=== PATIENT | male | born 1985 | race Caucasian/White ===

== ENCOUNTER → 2017-11-27 11:54 | Outpatient (CLI) | payer BC, SELFPAY ==
--- NOTE | 2017-11-27 12:02 | XR_ITS ---
XR ankle RT min 3V HISTORY: Pain following injury ITS.REASON: RT ANKLE INJURY ORDERING PHYSICIAN: Tyshanw Escobedo MD PATIENT AGE: 32 years COMPARISON: None FINDINGS: No fracture or dislocation. No lytic or blastic change. There is normal mineralization.. The joint spaces are well-preserved. No significant degenerative/arthritic changes. No erosive changes evident. IMPRESSION: Negative ankle, no acute finding
--- NOTE | 2017-11-27 12:02 | XR_ITS ---
XR foot RT min 3V HISTORY: Pain following injury ITS.REASON: RT ANKLE INJURY ORDERING PHYSICIAN: Tyshawn Escobedo MD PATIENT AGE: 32 years COMPARISON: None FINDINGS: No fracture or dislocation. No lytic or blastic change. There is normal mineralization.. The joint spaces are well-preserved. No significant degenerative/arthritic changes. No erosive changes evident. IMPRESSION: Negative, no acute finding
== END ==
PROVIDERS: PCP Family Medicine; Visit Provider Family Medicine
DX: S99.911A Unspecified injury of right ankle, initial encounter (principal)
CPT/HCPCS: 73610; 73630

== ENCOUNTER → 2018-04-16 16:18 | Outpatient (CLI) | payer BC, SELFPAY ==
--- NOTE | 2018-04-16 16:29 | XR_ITS ---
XR elbow RT min 3V HISTORY: ITS.REASON: RT ELBOW PAIN ORDERING PHYSICIAN: Tyshawn Escobedo MD PATIENT AGE: 32 years COMPARISON: None FINDINGS: BONY STRUCTURES: No fracture or dislocation. No lytic or blastic change. Normal mineralization. SOFT TISSUES: Unremarkable. No radio opaque foreign bodies. No displaced fat pad. JOINT SPACE: Well-preserved. No significant arthritic changes evident. IMPRESSION: Negative elbow.
== END ==
PROVIDERS: PCP Family Medicine; Visit Provider Family Medicine
DX: M25.521 Pain in right elbow (principal)
CPT/HCPCS: 73080

== ENCOUNTER 2020-06-14 14:21 | Emergency (ER) | payer BC, SELFPAY ==
[2020-06-14 16:20] VITALS: BP 146/98; PULSE 86; RESP 19; TEMP 36.7; O2SAT 98; BMI 31.4
--- NOTE | 2020-06-14 16:46 | HMH.EDUTC ---
[facility] [place] Impression: Laceration Disposition: Home, Self-Care Condition on Discharge: Good Instructions: How to Care for a Laceration After Repair, Laceration Repair, DI for Laceration Repair -- Simple Additional Instructions: You have required stitches today. Please read the following instructions so you know how to care for them: 1. Keep wound area dry for the first 24 hours. 2 May clean gently with mild soap and water, after 48 hours to prevent crusting over suture knots. 3. You may shower if your provider gives permission but do not take a bath until the skin is healed.. 4. Never leave a wet dressing or Band-Aid on your stitches as this allows bacteria to reach the area and may cause infection. Band-aids can cause the wound to sweat and not recommended to wear for long periods of time Watch for signs of infection: Increasing redness, tenderness or warmth around the suture site Unusual swelling around the site Appearance of pus around each suture or any red streaks Fever If you develop any of the above signs or symptoms of infection, Follow up with Family Physician immediately 5. Suture removal in _12-14___days 6. Return to [facility] or follow up with family doctor for removal. This can be done by any medical provider during regular hours on Thursday through Thursday, by appointment. Straight to ER if any life threatening symptoms Prescriptions: Amoxicillin/Potassium Clav [Augmentin 875-125 Tablet] 1 tab PO Q12H 7 Days #14 tab Transmission Status: Received by [id number] Referrals: Jovany Russell MD [Primary Care Provider] - As needed Time of Disposition: 16:50 Medical Decision Making - Evangelist Inquiry Pt receiving controlled substance: No Evangelist was queried for this patient: No Vital Signs: 06/14/20 16:20 06/14/20 17:15 Temperature 98.1 F 98.1 F Temperature Source Oral Pulse Rate 86 Pulse Rate [Right Brachial] 86 Respiratory Rate 19 19 Blood Pressure 146/98 H Blood Pressure [Right Arm] 146/98 H Blood Pressure Mean [Right Arm] 114 Blood Pressure Source [Right Arm] Automatic Cuff Blood Pressure Position [Right Arm] Sitting 02 Sat by Pulse Oximetry 98 Oxygen Delivery Method Room Air Orders (Tests/Meds): ED MEDICATIONS Discontinued Medications Generic Name Dose Route Start Last Admin Trade Name Freq PRN Reason Stop Dose Admin Tetanus/Reduced Diphtheria/Acell Pertussis 0.5 ml 06/14/20 16:53 06/14/20 17:05 Adacel Tdap 0.5ml Syringe IM 06/14/20 16:54 0.5 ml .ONCE ONE Administration Medical Decision Narrative: Last tetanus unknown, Laceration on left lower back area advised that he raised up and caught corner of electric panel door Recommended transfer to the ED for closure and patient declined States that he didnt want transfer to ED that he wanted to have wound closed in UTC no active bleeding with bruising noted around area [facility] [place] - General Stated complaint: cut on back Time Seen by Provider: 06/14/20 16:25 Mode of Arrival: Ambulatory Source of Information: Patient Limitations: No Limitations Description of Symptoms (Recalled from Triage Doc. by RN): PATIENT C/O LACERATION TO BACK AFTER HITTING IT ON AN ELECTRICAL BOX HEENT Symptoms (Recalled from RN notes): No Resp Symptoms (Recalled from RN notes): No Skin Symptoms (Recalled from RN notes): No MS Symptoms (Recalled from RN notes): Yes Functional Status (Recalled from RN notes): WNL - History of Present Illness Provider Complaint: Patient states that he was bent over working on something when he raised up and struck the left lower area of his back on sharp corner of metal electrical box door causing laceration to the left lower back area States that he reached back and noticed blood so he applied pressure and states that bleeding stopped but he could feel a cut back there and knew he needed stiches so he came on in - Related Data Previous Rx's Medication Instructions Recorded Amoxici
[2020-06-14 17:15] VITALS: BP 146/98; PULSE 86; RESP 19; TEMP 36.7; O2SAT 98
== END 2020-06-14 17:18 | disposition home or self-care (01) ==
PROVIDERS: Emergency Provider Nurse Practitioner; PCP Family Medicine
DX: S31.010A Laceration without foreign body of lower back and pelvis without penetration into retroperitoneum, initial encounter (principal); W22.09XA Striking against other stationary object, initial encounter; Y92.89 Other specified places as the place of occurrence of the external cause; Z23 Encounter for immunization
CPT/HCPCS: 12001; 90471; 90715; 99201

== ENCOUNTER 2021-09-15 11:02 | Emergency (ER) | payer BC, SELFPAY ==
[2021-09-15 11:40] VITALS: BP 142/82; PULSE 68; RESP 19; TEMP 36.9; O2SAT 98; BMI 32.5
--- NOTE | 2021-09-15 12:03 | HMH.EDUTC ---
[facility] [place] Clinical Impression: Bronchitis Sinusitis Qualifiers: Sinusitis location: unspecified location Chronicity: unspecified Qualified Code(s): J32.9 - Chronic sinusitis, unspecified Disposition: Home, Self-Care Condition on Discharge: Good Instructions: Sinusitis, Acute Bronchitis, DI for Sinusitis Additional Instructions: ? Start antibiotic today. Be sure to complete entire prescription even if feeling better ? Monitor temp. Tylenol every 4 hours as needed and / or ibuprofen every 6 hours as needed ( As long as your primary care physician has told you that it ok to take both. For fever/aches/pains ER if no less than 101 despite Tylenol or Motrin ? Humidifier/vaporizer or hot steamy shower ? Inhaler every 4-6 hours as needed like we discussed. If unsure how to use it, ask pharmacist to demonstrate how. Should help open airways and improve cough, wheezing, and shortness of breath ? Mucinex during the day for your cough and cough suppressant only at night. Be sure to drink lots of water. Insurance may not cover a prescriptions for mucinex. Might be cheaper to get 400mg tablets and take 2 tablet in the morning, mid-day and evening with lots of water. *Start steroid tomorrow. Helps with inflammation therefore, cough and wheezing. Follow directions on the package. Reviewed side effects. Patient reports taking them before. Follow up IMMEDIATELY for new or worsening of symptoms OR no noticeable improvement over the next 48-72 hours. 911 immediately for any life threatening symptoms such as chest pain or difficulty breathing Prescriptions: guaiFENesin [Mucinex 600mg tablet] 1 - 2 tab PO Q12HP PRN #20 tab PRN Reason: Congestion Transmission Status: Received by [id number] predniSONE [Prednisone 20mg Tab] 20 mg PO BID 5 Days #10 tab Transmission Status: Received by [id number] Azithromycin [Z-Claudio 250mg Tab] 250 mg PO DIRECTED #6 tab Transmission Status: Received by [id number] Referrals: Jovany Russell MD [Primary Care Provider] - As needed Forms: Work/School Release Time of Disposition: 12:16 Medical Decision Making - Evangelist Inquiry Pt receiving controlled substance: No Evangelist was queried for this patient: No Vital Signs: 09/15/21 11:40 09/15/21 12:34 Temperature 98.4 F 98.4 F Temperature Source Oral Pulse Rate 68 Pulse Rate [Right Brachial] 68 Respiratory Rate 19 19 Blood Pressure 142/82 H Blood Pressure [Right Arm] 142/82 H Blood Pressure Mean [Right Arm] 102 Blood Pressure Source [Right Arm] Automatic Cuff Blood Pressure Position [Right Arm] Sitting 02 Sat by Pulse Oximetry 98 Oxygen Delivery Method Room Air - Lab Data Lab results reviewed: Yes: I reviewed the patient's lab results. Lab Results 09/15/21 12:10: Strep Scn Rapid Clinic Negative Orders (Tests/Meds): ED MEDICATIONS Discontinued Medications Generic Name Dose Route Start Last Admin Trade Name Bjq PRN Reason Stop Dose Admin Ceftriaxone Sodium 1 gm 09/15/21 12:11 09/15/21 12:30 Ceftriaxone 1gm Vial IM 09/15/21 12:12 1 gm ONCE ONE Administration Lidocaine HCl 0 ml 09/15/21 12:11 09/15/21 12:30 Lidocaine 1% 5ml Pf Vial IM 09/15/21 12:12 2.1 ml ONCE ONE Administration Methylprednisolone Sodium Succinate 125 mg 09/15/21 12:11 09/15/21 12:30 Methylprednisolone Sod Succ 125mg Vial IM 09/15/21 12:12 125 mg ONCE ONE Administration ORDERS Category Date Time Status Strep Screen Confirmation Stat Micro 09/15/21 12:10 Received Medical Decision Narrative: Discussed chest xray and patient declined [facility] [place] - General Stated complaint: sore throat, congesiton, cough Time Seen by Provider: 09/15/21 12:03 Mode of Arrival: Ambulatory Source of Information: Patient Limitations: No Limitations Description of Symptoms (Recalled from Triage Doc. by RN): PATIENT C/O CONGESTION, COUGHING, AND LUNG PAIN X 1 WEEK HEENT Symptoms (Recalled
[2021-09-15 12:21] LABS: UTC Strep Screen (Rapid) Negative (Negative)
[2021-09-15 12:34] VITALS: BP 142/82; PULSE 68; RESP 19; TEMP 36.9; O2SAT 98
== END 2021-09-15 12:46 | disposition home or self-care (01) ==
PROVIDERS: Emergency Provider Nurse Practitioner; PCP Family Medicine
DX: J20.9 Acute bronchitis, unspecified (principal); J32.9 Chronic sinusitis, unspecified
CPT/HCPCS: 87880; 96372; 99202; G0463

== ENCOUNTER 2022-11-10 16:49 | Emergency (ER) | payer BC, SELFPAY ==
[2022-11-10 17:20] VITALS: BP 160/89; PULSE 100; RESP 19; TEMP 36.6; O2SAT 97; BMI 34.9
--- NOTE | 2022-11-10 17:26 | EXP.UTC ---
Discharge Plan Disposition Patient Disposition: Home, Self-Care Condition: Good Prescriptions Prescriptions: New azithromycin [Zithromax] 250 mg tablet 250 mg PO UD DOSE PK Qty: 6 0RF Rx Instructions: Take two (2) tablets today, then one (1) tablet days #2 thru #5 benzonatate [benzonatate] 100 mg capsule 100 mg PO TIDP PRN (Reason: Cough) Qty: 30 0RF methylprednisolone 4 mg Tablets,Dose Pack 4 mg PO DIRECTED Qty: 21 0RF albuterol sulfate [Ventolin HFA] 90 mcg/actuation HFA aerosol inhaler 2 puff inhalation Q6H PRN (Reason: shortness of breath or wheezing) Qty: 6.7 0RF Referrals Follow up/Referrals: Jovany Russell MD [Primary Care Provider] - See instructions Activity Restrictions/Add. Instructions Additional Instructions/Restrictions: Drink plenty of fluids. Take tylenol or ibuprofen for pain or fever. Take the medications as directed. Follow up with your regular doctor. GO TO THE ER FOR ANY WORSENING SYMPTOMS Clinical Impressions Clinical Impression: Acute bronchitis Stand Alone Forms Stand Alone Forms: Work/School Release Instructions Patient Instructions: DI for Acute Bronchitis Discharge ED Provider: Brice Martin [facility] General Stated complaint: congestion Time Seen by Provider: 11/10/22 17:26 History of Present Illness Provider Complaint: He states that for the past 5 days he has had chest congestion, cough with yellow sputum, sore throat and malaise. Related Data Previous Rx's Medication Instructions Recorded albuterol sulfate 90 mcg/actuation 2 puff inhalation Q6H PRN 11/10/22 aerosol inhaler (Ventolin HFA) shortness of breath or wheezing #6.7 grams azithromycin 250 mg tablet 250 mg PO UD DOSE PK #6 tabs 11/10/22 (Zithromax) benzonatate 100 mg capsule 100 mg PO TIDP PRN Cough #30 caps 11/10/22 methylprednisolone 4 mg tablets in 4 mg PO DIRECTED #21 tabs 11/10/22 a dose pack Allergies Allergy/AdvReac Type Severity Reaction Status Date / Time No Known Allergies Allergy Verified 11/10/22 17:32 [facility] Disclaimer: The information contained in this section may have been updated after the patient was seen, as this information can be updated by other users. Social History Smoking Status: Current every day smoker tobacco type: cigarettes packs per day: 1 alcohol intake: never current occupational status: other Travel in the last 8 weeks: None ROS Obtained: Yes All systems reviewed & no additional complaints except as documented Constitutional Constitutional: Reports poor appetite Eyes Eyes: Reports system reviewed and no additional complaints, except as documented ENT Ears, Nose, Mouth, and Throat: Reports as per HPI Cardiovascular Cardiovascular: Reports system reviewed and no additional complaints, except as documented and Denies chest pain Respiratory Respiratory: Denies shortness of breath, Reports chest congestion, Reports cough, Denies stridor and Denies wheezing Gastrointestinal Gastrointestingal: Reports system reviewed and no additional complaints, except as documented; Denies abdominal pain, diarrhea or vomiting Musculoskeletal Musculoskeletal: Reports system reviewed and no additional complaints, except as documented and Denies arthralgias Integumentary/Breasts Skin/Breast: Reports system reviewed and no additional complaints, except as documented and Denies rash Neurologic Neurologic: Denies paresthesias Allergic/Immunologic Allergic/Immunologic: Denies wheezing Physical Exam General General appearance: alert and in no apparent distress Head Head exam: atraumatic, normocephalic and normal inspection Eye Eye exam: Present normal appearance, PERRL and EOMI ENT ENT exam: Present normal exam, normal oropharynx, mucous membranes moist, TM's normal bilaterally and normal external ear exam Neck Neck exam: Present normal inspection, full ROM and trachea
[2022-11-10 18:30] VITALS: BP 160/89; PULSE 100; RESP 19; TEMP 36.1; O2SAT 97
== END 2022-11-10 18:30 | disposition home or self-care (01) ==
PROVIDERS: Emergency Provider Nurse Practitioner Family; PCP Family Medicine
DX: J20.9 Acute bronchitis, unspecified (principal)
CPT/HCPCS: 96372; 99212; 99213; G0463; J0696

== ENCOUNTER 2025-05-17 10:00 | Outpatient (CLI) | payer BC, SELFPAY ==
[2025-05-17 10:08] VITALS: BMI 31.2
--- OUTSIDE RECORDS SUMMARY | 2025-05-17 10:08 | XMS_ITS | Clinical Summary ---
Author Organization [facility] Address [address] [place] [address] Phone Care Team Providers Care Victims Advocate Clerk/Specialist Name Role Phone Unavailable Primary Care Provider Unavailabl e Allergies No known active allergies Medications albuterol (PROVENTIL HFA;VENTOLIN HFA) 90 mcg/actuation inhaler Inhale 2 Puffs into the lungs every 6 hours as needed. Active Surgical History Surgery Date Site/Laterality Comments HAND SURGERY left wrist fx/hdw CHEST TUBE INSERTION age 13, pneumonia KNEE ARTHROSCOPY 10/21/2012 Left left knee arthroscopy partial lateral meniscectomy chondroplasty; Surgeon: Rehan Mar MD; Location: [facility]; Service: Orthopedics Medical History Medical History Date Comments Asthma Pneumonia age 13 Family History Medical History Relation Name Comments Anesth Problems Neg Hx Social History Tobacco Use Types Packs/Day Years Used Date Smoking Tobacco: Every Day Cigarettes 1 5 Tobacco Cessation:Ready to Q uit: Yes; Counseling Given: Yes Comments:recommended st e smoking cessation program Alcohol Use Standard Drinks/Week Comments Yes 0 (1 standard drink = 0.6 oz pur e alcohol) social Sex and Gender Information Value Date Recorded Sex Assigned at Not on file Legal Sex Male 5:00 AM EDT Gender Identity Not on file Sexual Orientation Not on file Obstetrics History Last Filed Vital Signs Vital Sign Reading Time Taken Comments Blood Pressure 140/82 10/21/2012 4:10 PM EST Pulse 68 10/21/2012 4:10 PM EST Temperature 36.7 C (98 F) 10/21/2012 3:56 PM EST Respiratory Rate 16 10/21/2012 3:00 PM EST Oxygen Saturation 98% 10/21/2012 4:10 PM EST Inhaled Oxygen Concentration - - Weight 129 kg (284 lb 7 oz) 10/21/2012 1:[address] Height 190.5 cm (6' 3 ) 10/21/2012 1:31 PM EST Body Mass Index 35.55 10/21/2012 1:31 PM EST Plan of Treatment Health Maintenance Due Date Last Done Comments Annual Wellness Exam 1988 DTaP/TDaP/Td (1 - Tdap) 2004 Hepatitis B Vaccine (1 of 3 - 19+ 3-dose series) 2004 COVID-19 Vaccine ( - 2023-2 5 season) 2024 Influenza Vaccine (#1) 2025 Meningococcal B Vaccine Aged Out No l onger eligible based on patient's age to complete this topic Pneumococcal Vaccine 0-49 Aged Out No longer eligible based on patient's age to complete this topic Insurance URI PPO Advance Directives For more information, please contact: [phone] * Full Code (Latest Code Status on File) Date Activated Date Inactivated Comments 10/21/2012 3:10 PM 10/21/2012 8:27 PM
--- OUTSIDE RECORDS SUMMARY | 2025-05-17 10:08 | XMS_ITS | Clinical Summary ---
Author Organization [facility] Address [address] [place] [phone] Phone Care Team Providers Care Pediatric Urologist Name Role Phone Drew EDMONDSON MD, Wil Saha Primary Care Provider + Allergies No known active allergies Medications azithromycin (Z-PACK) 250 MG TABS packetIndicatio ns:Sebaceous cyst Take 2 tablets (500 mg) today, then 1 tablet (250 mg) by mouth for 4 days starting tomorrow. 6 tablet 1 07/05/2014 Active Active Problems No known active problems Resolved Problems Problem Noted Date Diagnosed Date Resolved Date EPIDERMAL INCLUSION CYST 07/05/2014 Family History Medical History Relation Name Comments Diabetes Father Heart Disease Father High BP Father Cancer Paternal Grandfather Stroke Paternal Grandmother Relation Name Status Comments Father Paternal Grandfather Paternal Grandmother Social History Tobacco Use Types Packs/Day Years Used Date Smoking Tobacco: Every Day Cigarettes Smokeless Tobacco: Never Tobacco Cessation:Ready to Q uit: No; Counseling Given: Yes Alcohol Use Standard Drinks/Week Comments Yes 0 (1 standard drink = 0.6 oz pur e alcohol) social Sex and Gender Information Value Date Recorded Sex Assigned at Not on file Legal Sex Male 3:06 PM EDT Gender Identity Not on file Sexual Orientation Not on file Last Filed Vital Signs Vital Sign Reading Time Taken Comments Blood Pressure 158/93 07/17/2014 3:35 PM EDT Pulse 86 07/17/2014 3:35 PM EDT Temperature 36.6 C (97.8 F) 07/12/2014 7:52 AM EDT Respiratory Rate 18 07/12/2014 9:45 AM EDT Oxygen Saturation 98% 07/12/2014 7:52 AM EDT Inhaled Oxygen Concentration - - Weight 131.5 kg (290 lb) 07/17/2014 3:35 PM EDT Height 190.5 cm (6' 3 ) 07/17/2014 3:35 PM EDT Body Mass Index 36.25 07/17/2014 3:35 PM EDT Plan of Treatment Health Maintenance Due Date Last Done Comments DTap,Tdap,and Td (1 - Tdap) 1996 Influenza Vaccine (Season Ended) 2025 RSV Vaccine (60+ or ) (1 - 1-dose 75+ series) 2060 HPV Aged Out No longer eligi ble based on patient's age to complete this topic Meningococcal conjugate danny nt 4 (MCV4) Aged Out No longer eligible b ased on patient's age to complete this topic Pneumococcal 0-49 Aged Out No longer eligible based on patient's age to complete this topic RSV Immunization (<20 months) Aged Out No longer eligible based on patient's age to complete this topic Insurance July [id number] [employer]ERS [facility] [employer]THERS Care Teams Pediatric Urologist Relationship Specialty Start Date End Date Wil Russell MD, [facility] [place] [facility] [address] [address] PCP - General 05/10/14
--- OUTSIDE RECORDS SUMMARY | 2025-05-17 10:08 | XMS_ITS | Referral Summary ---
Author Organization [facility] Address [address] [place] [phone] Phone Care Team Providers Care Extractor Operator Name Role Phone Drew EDMONDSON MD, Wil [...] Date Resolved Date EPIDERMAL INCLUSION CYST 07/05/2014 Social History Tobacco Use Types Packs/Day Years [...] 07/17/2014 3:35 PM EDT Plan of Treatment Not on file Insurance [address] [id number] [employer] [address] [id number] [employer]THERS Care Teams Extractor Operator Relationship Specialty Start Date End Date Wil Russell MD, [address] [place] [facility] [address] [place] [id number] PCP - General 05/10/14
[2025-05-17 10:44] LABS: Hematocrit 44.3 % (42.0-52.0); Hemoglobin 15.1 g/dL (14.1-18.0); Mean Corpuscular HGB Conc 34.1 g/dL (31.8-35.4); Mean Corpuscular Hemoglobin 31.4 pg (27.0-31.2); Mean Corpuscular Volume 92.1 fl (80-94); Platelet Count 208 K/mm3 (142-424); Red Blood Count 4.81 M/mm3 (4.60-6.20); White Blood Count 6.6 K/mm3 (4.8-10.8)
[2025-05-17 10:56] LABS: Anion Gap 17.4 mEq/L (5-15); Blood Urea Nitrogen 10 mg/dl (9-20); Calcium 9.8 mg/dl (8.4-10.2); Carbon Dioxide 25 mmol/L (22.0-30.0); Chloride 101 mmol/L (98-107); Creatinine Clearance Estimated 159 mL/min (50-200); Creatinine,Serum 1.00 mg/dl (0.66-1.25); Estimated Glomerular Filt Rate 83 ml/min (>60); GFR (African American) 101 ML/MIN (>60); Glucose 106 mg/dl (74-100); Potassium 4.4 mmoL/L (3.5-5.1); Sodium 139 mmol/L (136-145)
[2025-05-17 11:21] LABS: Total Cells Counted 100
[2025-05-17 11:22] LABS: Hypochromasia 1+
== END 2025-05-17 23:59 | disposition home or self-care (01) ==
LOC: PREOP 10:01
PROVIDERS: PCP Family Medicine; Visit Provider Surgery
DX: Z01.812 Encounter for preprocedural laboratory examination (principal)
CPT/HCPCS: 80048; 85007; 85014; 85018; 85048; 85049

== ENCOUNTER 2025-05-26 08:13 | Day surgery (SDC) | payer BC, SELFPAY ==
[2025-05-17 15:03] VITALS: BMI 31.2
[2025-05-26] VITALS (10 sets, daily range): BP systolic 119–143; BP diastolic 51–90; PULSE 50–77; RESP 14–18; TEMP 36.1–36.4; O2SAT 95–100
[2025-05-26] MEDS: LACTATED RINGERS 1000ML 1,000 ML 25 ML IV (08:28)
[2025-05-26] MEDS: METRONIDAZ/SOD CHL 500 MG/100 ML PIGGYBACK 100 MG IV (09:00)
[2025-05-26] MEDS: LIDOCAINE 1% 20ML MDV 20 ML (09:10)
--- NOTE | 2025-05-26 09:20 | P.OP_ITS ---
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 General anesthesia with laryngeal mask airway was achieved. He was transferred to a modified lithotomy position. Inspection and palpation revealed an anterior anal margin fistula that was at least partially trans-sphincteric. A double vessel loop was placed in position and secured via silk ties as a seton. No additional obvious fistula tracts noted. The entire region was infiltrated with 1% lidocaine. Dressings were applied and the patient was transferred to recovery in stable condition. Condition: stable Disposition: PACU Specimens:: none Complications:: No immediate
--- NOTE | 2025-05-26 09:26 | EXP.ANES.I ---
[facility] Anesthesia Record Part I Anesthesia Record I Intake, IV Amount: 500 Hydration: Adequate Estimated blood loss (mL): 0 Urine output (mL): 0 Blood Products used (#): none Blood Pressure: 132/67 SaO2: 95 Pulse Rate: 50 Airway Patency: Patent Respiratory Rate: 14 Temperature: 97.0 F Patient is:: Stable and Somnolent Stable to PACU at:: 09:24
--- NOTE | 2025-05-26 09:27 | EXP.ANES.CKL ---
[facility] Disclaimer: The information contained in this section may have been updated after the patient was seen, as this information can be updated by other users. Medical History Asthma Surgical History History of surgery on wrist Family History Other Family history of cancer Family history of diabetes mellitus Family history of heart disease Social History Smoking Status: Current every day smoker tobacco type: cigarettes packs per day: 1 alcohol intake: current substance use type: denies use current occupational status: employed and other Travel in the last 8 weeks?: None [facility] Anesthesia Checklist Patient Identification Patient Identification: Arm Band and Verbal (Name & ) Structural Data Admitted From: Home Planned Operative Procedure/s: EUA, possible seton placement Consent for Planned Operative Procedure(s) Verified: Yes Verified Documents: Surgical Consent NPO Status Verified Time NPO: 00:00 Additional verifications Anesthesia Reactions: No Hx Blood Transfusions: No Blood Transfusion Reaction: No Airway Assessment Mallampati Score:: Class II C-Spine Mobility Assessed: Yes TMJ Mobility Assessed: Yes Dentition: Good Dentition Neurological Assessment Level of Consciousness: Awake, Alert and Appropriate Hx Seizures: No Numbness or tingling in extremities: No Anesthesia Plan Anesthesia Risk discussed: Yes Anesthesia Plan: Verified ASA Class: II Anesthesia Type: General
--- NOTE | 2025-05-26 10:57 | P.PNANES_ITS ---
[facility] Anesthesia Record Part II Anesthesia Record Part II Discharge Time: 10:25 Destination: Surgical Day Care (OP Surgery) PACU nurse assessment reviewed?: Yes Patient Condition:: Good Anesthesia Complications:: None Swallowing reflex intact?: Yes Airway Patency: Patent Cyanosis?: No Blood Pressure: 119/51 SaO2: 99 Respiratory Rate: 18 Pulse Rate: 56 Temperature: 97.4 F Mental Status: Alert & Oriented Pain level:: 5 Nausea and/or vomitting:: None Intake, IV Amount: 0 Hydration: Adequate
== END 2025-05-26 10:50 | disposition home or self-care (01) ==
PROVIDERS: PCP Family Medicine; Visit Provider Surgery
PROC: (CPT 46020; principal; 2025-05-26 09:45)
DX: K61.0 Anal abscess (principal); J45.909 Unspecified asthma, uncomplicated; F17.210 Nicotine dependence, cigarettes, uncomplicated
CPT/HCPCS: 46020; 96374; J0690; J1100; J1836; J1885; J2003; J2250; J2405; J2704; J3010; J7120